=== PATIENT | female | born 2005 | race Caucasian/White ===

== ENCOUNTER 2023-01-28 16:02 | Emergency (ER) | payer BC, SELFPAY ==
[2023-01-28 16:03] VITALS: BP 106/65; PULSE 60; RESP 16; TEMP 36.7; O2SAT 100
[2023-01-28 16:44] VITALS: BP 108/58; PULSE 75; RESP 18; TEMP 37.1; O2SAT 100
[2023-01-28 18:17] VITALS: BP 114/79; PULSE 67; RESP 18; O2SAT 100
--- NOTE | 2023-01-28 18:25 | ED.GENADULT ---
HPI - General Adult General Chief complaint: Upper Respiratory Infection Stated complaint: swollen R tonsil Time Seen by Provider: 01/28/23 17:07 Source: patient Mode of arrival: ambulatory Limitations: no limitations History of Present Illness HPI narrative: This is a 17-year-old female who presents to the ED with chief complaint of sore throat for the past several days. Reports she was seen in urgent care yesterday and started on antibiotics this morning. She is taking amoxicillin. Reports that her strep swabs were negative but she was sent by urgent care today to rule out PHYSIOLOGICAL CHEMIST. Patient states that she has had intermittent fevers up to 101 ?F but these improve quickly with Tylenol and ibuprofen. Denies dysphagia, muffled voice, trismus, drooling. Denies any further complaint. Related Data Allergies Allergy/AdvReac Type Severity Reaction Status Date / Time naproxen AdvReac Drowsy Verified 01/28/23 16:50 Review of Systems Review of Systems: All systems as dictated in HPI Exam Narrative: GENERAL: Well-appearing, well-nourished, and in no acute distress. HEAD: Normocephalic, atraumatic. EYES: PERRLA and EOMI. ENT: Mild right-sided tonsillar hypertrophy. 1 exudate visualized on the right tonsil. Uvula midline. No trismus or drooling. Tolerating secretions. Floor the mouth intact. No neck swelling. Nares clear, no rhinorrhea or epistaxis. Mucous membranes moist. NECK: Supple. No adenopathy or masses. CHEST: No respiratory distress. Clear to auscultation. No wheezes rales or rhonchi HEART: Regular rate and rhythm. No murmur heard. Normal peripheral pulses. ABDOMEN: Soft, nontender, nondistended, normal active bowel sounds. MSK: Normal range of motion. No edema. SKIN: Warm, dry, no rash. NEURO: Alert and oriented x3. No focal deficits. PSYCH: Normal mood and affect. Course Vital Signs Vital signs: Vital Signs Temperature 98.1 F 01/28/23 16:03 Pulse Rate 60 01/28/23 16:03 Respiratory Rate 16 01/28/23 16:03 Blood Pressure 106/65 01/28/23 16:03 Pulse Oximetry 100 01/28/23 16:03 Oxygen Delivery Room Air 01/28/23 16:03 Temperature 98.8 F 01/28/23 16:44 Pulse Rate 67 01/28/23 18:59 Respiratory Rate 18 01/28/23 18:59 Blood Pressure 95/65 L 01/28/23 18:59 Pulse Oximetry 100 01/28/23 18:59 Oxygen Delivery Room Air 01/28/23 16:03 Medical Decision Making MDM Narrative Medical decision making narrative: This is a 17-year-old female who presents to the ED with chief complaint of sore throat for the past couple of days. She was started on antibiotics with urgent care yesterday. Vitals are normal. Exam reveals mild right-sided tonsillar hypertrophy and mild exudate. No uvular deviation. Very low concern for peritonsillar abscess. Symptoms consistent with tonsillitis. I offered further work-up with the patient but we discussed that I have a low concern for PHYSIOLOGICAL CHEMIST or deep space infection based on her exam. She declines further work-up and would like to go home on antibiotics. I also offered steroid to help with the sore throat and Medrol Dosepak was prescribed. Switching her amoxicillin to Augmentin for more coverage. Pt will be discharged in stable condition. Return precautions given and supportive measures discussed. Pt is understanding and agreeable with plan for discharge and follow-up with PCP. Vital Signs Vital Signs: Vital Signs Temperature 98.1 F 01/28/23 16:03 Pulse Rate 60 01/28/23 16:03 Respiratory Rate 16 01/28/23 16:03 Blood Pressure 106/65 01/28/23 16:03 Pulse Oximetry 100 01/28/23 16:03 Oxygen Delivery Room Air 01/28/23 16:03 Temperature 98.8 F 01/28/23 16:44 Pulse Rate 67 01/28/23 18:59 Respiratory Rate 18 01/28/23 18:59 Blood Pressure 95/65 L 01/28/23 18:59 Pulse Oximetry 100 01/28/23 18:59 Oxygen Delivery Room Air 01/28/23 16:03 Discharge Plan Discharge Clinical Impression: Sore throat
[2023-01-28 18:59] VITALS: BP 95/65; PULSE 67; RESP 18; O2SAT 100
== END 2023-01-28 19:01 | disposition home or self-care (01) ==
PROVIDERS: Emergency Provider Physician Assistant
DX: J02.9 Acute pharyngitis, unspecified (principal)
CPT/HCPCS: 99283

== ENCOUNTER 2024-09-04 02:35 | Day surgery (SDC) | payer BC, SELFPAY ==
[2024-08-29 12:08] VITALS: BMI 18.9
--- NOTE | 2024-08-29 12:16 | PC.NURSE ---
Report to the Outpatient Waiting Room, entrance under the green pavilion located off [facility], at time _0600_ on date _[id number]_. Planned Procedure Time: _0730_.? Time changes happen often and if your time is changed the preop area will call you the afternoon before. - You and your visitor will be asked to self-screen and do not enter if you have any COVID symptoms. Please call surgeon if you need to reschedule. - A mask is optional within the hospital at this time. Patients may have clear liquids (water, carbonated beverages, clear teas, apple juice) until 3 hours prior to surgery with a maximum of 20 ounces. - No food from midnight until time of surgery and no smoking, or chewing tobacco (or any form of nicotine). No chewing gum, candy or mints. Take only the following medications with a SIP of water on the morning of surgery: ___None____ DO NOT STOP ANY OF YOUR OTHER PRESCRIPTION MEDICATIONS PRIOR TO SURGERY EXCEPT THE FOLLOWING Hold all vitamins and supplements for 3 days per anesthesiologist. Medications to discontinue per physician Date to take last dose Please no make-up, nail tongan, hairspray, perfume, deodorant, or body powder the day of surgery.? No jewelry (including any body piercings) or valuables the day of surgery, leave them at home.? Please take a shower or bath the night before, or the morning of, surgery with an antibacterial soap.? Wear comfortable, loose fitting clothing.? - Jewelry must be removed prior to entering the operating room.? Rings and piercings that are not removed may be cut off. - The hospital will not accept responsibility for valuables.? - Please leave all valuables, including medications, at home the day of surgery. If you are going home after surgery, a licensed driver engineer must drive you home.? - NO public transportation without another adult if you receive anesthesia. - We recommend that an adult stay with you for 24 hours following discharge. - We also recommend that you do not drive, make important decision, drink alcoholic beverages, or take any drugs that were not prescribed by your health care provider for at least 24 hours after your discharge time. Follow any additional instructions given to you from your surgeon. Telephone instructions given to __Georgia___and asked if any additional questions and then verbalized understanding. Patient advised to call surgeon office or pre surgery nurse liaison [phone] if any additional questions.
[2024-09-04] VITALS (9 sets, daily range): BP systolic 103–127; BP diastolic 59–94; PULSE 66–99; RESP 14–23; TEMP 36.4–36.9; O2SAT 98–100
--- OUTSIDE RECORDS SUMMARY | 2024-09-04 02:39 | XMS_ITS | Clinical Summary ---
Author Organization [facility] [address] Address [address] [place] [id number] Care Team Providers Care Gas Singer Name Role Phone Mary Alonso MD Primary Care Provider [phone] Allergies Active Allergy Reactions Criticality Noted Date Comments Naproxen Other (See comments) Low 01/27/2023 drowsy Medications etonogestreL-et hinyl estradioL (EluRyng) 0.12-0.015 mg/24 hr vaginal ring INSERT 1 VAGINAL RING EVERY MONTH BY VAGINAL ROUTE 02/07/2024 Active Active Problems No known active problems Social History Tobacco Use Types Packs/Day Years Used Date Smoking Tobacco: Never Assessed Comments Unknown Sex and Gender Information Value Date Recorded Sex Assigned at Not on file Legal Sex Female 11:05 AM CDT Gender Identity Not on file Sexual Orientation Not on file Obstetrics History Last Filed Vital Signs Vital Sign Reading Time Taken Comments Blood Pressure 108/68 05/31/2024 4:38 PM HIM ASSISTANT Pulse 74 05/31/2024 4:38 PM HIM ASSISTANT Temperature 36.9 C (98.5 F) 05/31/2024 4:38 PM HIM ASSISTANT Respiratory Rate 20 05/31/2024 4:38 PM HIM ASSISTANT Oxygen Saturation 99% 05/31/2024 4:38 PM HIM ASSISTANT Inhaled Oxygen Concentration - - Weight 49.9 kg (110 lb) 05/31/2024 4:38 PM HIM ASSISTANT Height 162.6 cm (5' 4) 04/30/2024 6:59 PM HIM ASSISTANT Body Mass Index 18.88 04/30/2024 6:59 PM HIM ASSISTANT Plan of Treatment Health Maintenance Due Date Last Done Comments Cervical Cancer Screening 2003 Depression Screening 2003 Hepatitis C Screening 2003 Varicella Vaccines (2 of 2 - 2-dose childhood series) 2007 11/12/2004 DTaP/Tdap/Td Vaccine (6 - Tdap) 2014 11/01/2008, 05/21/2004, 2003, Additional history exists HPV Vaccines (1 - 3-dose series) 2018 Meningococcal B Vaccine (1 of 2 - Standard) 2019 Regular Well Visit/Exam 18-64 2021 Covid-19 Vaccine (2 - season) 2023 09/08/2022 Hepatitis B Screening Completed 2003 , 2003, 2003 Meningococcal Vaccine Completed 10/09/2020 Influenza Vaccine Completed 01/11/2024, 12/30/2023 Pneumococcal vaccine <65 Aged Out No longer eligible based on patient's age to complete this topic Insurance [employer] Group Member Subscriber Plan / Payer (Ef fective 2019-Present) Name:Georgia Bowers Relation to Subscriber:Child Name:ADITINUNUSTEWART Date of :1970 (Home) Address: [address] [place] [id number] Payer ID:[id number] (NAIC) Type:[employer] Address: [facility] [id number] [place] [id number] Care Teams Gas Singer Relationship Specialty Start Date End Date Mary Alonso MD [address] [place] [address] PCP - General Family Practice 01/27/23
--- OUTSIDE RECORDS SUMMARY | 2024-09-04 02:39 | XMS_ITS | Referral Summary ---
Author Organization [facility] [address] Address [address] [place] [id number] Care Team Providers Care Livestock Ranch Hand Name Role Phone Mary Alonso MD Primary Care Provider [phone] Allergies Active Allergy Reactions Criticality Noted Date [...] on file Sexual Orientation Not on file Last Filed Vital Signs Vital Sign Reading Time Taken Comments Blood Pressure 108/68 05/31/2024 4:38 PM DELIVERY DRIVER ASSISTANT Pulse 74 05/31/2024 4:38 PM DELIVERY DRIVER ASSISTANT Temperature 36.9 C (98.5 F) 05/31/2024 4:38 PM DELIVERY DRIVER ASSISTANT Respiratory Rate 20 05/31/2024 4:38 PM DELIVERY DRIVER ASSISTANT Oxygen Saturation 99% 05/31/2024 4:38 PM DELIVERY DRIVER ASSISTANT Inhaled Oxygen Concentration - - Weight 49.9 kg (110 lb) 05/31/2024 4:38 PM DELIVERY DRIVER ASSISTANT Height 162.6 cm (5' 4) 04/30/2024 6:59 PM DELIVERY DRIVER ASSISTANT Body Mass Index 18.88 04/30/2024 6:59 PM DELIVERY DRIVER ASSISTANT Plan of Treatment Not on file Insurance [employer] Member Subscriber Plan / Payer (Ef fective 2019-Present) Name:Georgia Pennington Relation to Subscriber:Child Name:STEWART PENNINGTON Date of :1972 (Home) Address: [address] [place] [id number] Payer ID:[id number] (NAIC) Type:[employer] Address: [facility] [id number] [place] [id number] Care Teams Livestock Ranch Hand Relationship Specialty Start Date End Date Mary Alonso MD [address] [place] [address] PCP - General Family Practice 01/27/23
--- OUTSIDE RECORDS SUMMARY | 2024-09-04 02:39 | XMS_ITS | Clinical Summary ---
Author Organization [facility] Address [address] [place] [address] Phone Care Team Providers Care Child Care Lead Teacher Name Role Phone Unavailable Primary Care Provider Unavailabl e Allergies No known active allergies Medications No known medications Active Problems Problem Noted Date Diagnosed Date Painful orthopaedic hardware 01/29/2015 Encounter for removal of internal fixation devic e 01/29/2015 Social History Tobacco Use Types Packs/Day Years Used Date Smoking Tobacco: Never Smokeless Tobacco: Never Tobacco Cessation:Counseling Given: No Alcohol Use Standard Drinks/Week Comments No 0 (1 standard drink = 0.6 oz pur e alcohol) Comments No Sex and Gender Information Value Date Recorded Sex Assigned at Not on file Legal Sex Female 4:08 AM CDT Gender Identity Not on file Sexual Orientation Not on file Last Filed Vital Signs Vital Sign Reading Time Taken Comments Blood Pressure 104/55 12/05/2017 8:28 AM CDT Pulse 57 12/05/2017 8:28 AM CDT Temperature 37 C (98.6 F) 12/05/2017 8:28 AM CDT Respiratory Rate 17 12/05/2017 8:28 AM CDT Oxygen Saturation 99% 12/05/2017 8:28 AM CDT Inhaled Oxygen Concentration - - Weight 52.1 kg (114 lb 14.4 oz) 12/05/2017 8:28 AM CDT Height 160 cm (5' 3) 12/05/2017 8:28 AM CDT Body Mass Index 20.35 12/05/2017 8:28 AM CDT Plan of Treatment Health Maintenance Due Date Last Done Comments Hepatitis C Virus (HCV) Screening 2003 TdaP Immunization 2003 Human Papillomavirus (HPV) Immunization (1 - 3-dose series) 2018 Meningococcal B Immunization (1 of 2 - Standard) 2019 Hepatitis B Immunization (1 of 3 - 19+ 3-dose series) 2022 Influenza Immunization (#1) 2023 SARS-COV-2 Immunization ( - 2023- season) 2023 Respiratory Syncytial Virus (RSV) Immunization (Adult) (1 - 1-dose 75+ series) 2078 Meningococcal Immunization (ACWY) Aged Out No longer eligible based on patient's age to complete this topic Pneumococcal Immunization Combined Aged Out No longer eligible based on patient's age to complete this topic Rotavirus Immunization Aged Out No lo nger eligible based on patient's age to complete this topic Insurance [facility] Advance Directives * Full Code (Latest Code Status on File) Date Activated Date Inactivated Comments 02/08/2015 8:11 AM 02/08/2015 2:43 PM Full Code: FULL ARREST: Attempt Resuscitation/CPR and use intubation and mechanical ventilation as indicated. PRE-ARREST: Use all measures to stabilize patient.
--- OUTSIDE RECORDS SUMMARY | 2024-09-04 02:39 | XMS_ITS | Data Portability ---
Author Organization [facility], [address] [place] [address] Neurology ([place]) Address [address] [place] [address] Care Team Providers Care Debt Collection Specialist Name Role Phone MARY MARCIAL Primary Care Provider [phone] Assessment Encounter Date Assessment Date Assessment LastModified by Organization Details LastModified Time 09/28/2023 09/28/2023 The patient was encouraged to continue with her mqzj-adz-abhcpuf Mucinex. She was encouraged to use nasal saline as well. I did give her some Flonase as well as antibiotics. If she is not improving or she is worsening, she is to call back in the next several weeks. If anything changes in the meantime, she is to let me know. She was advised to keep an eye on the area on her right lower back. If it changes all, she will call back. The patient voiced understanding of this plan and was in agreement with it. Not available 09/28/2023 13:15:34 06/09/2024 06/09/2024 The patient was advised to change her toothbrush after 3 days. She will continue with her ring as she may insert a new one. If she starts having any other issues or concerns, she is to call me back. She was encouraged to use protection if she is going to be sexually active. She voiced understanding of this plan and was in agreement with it. If she still having a sore throat next week, she is to call back. Not available 06/09/2024 12:08:22 07/14/2024 07/14/2024 She is up-to-date on her tetanus and she was advised to continue keeping the area clean and covered. I advised her that the bruising might worsen. She should continue with the antibiotics and call me if she develops any worsening symptoms. The patient and mother voiced understanding of this plan and and was in agreement with it. If anything changes, they will call back. Not available 07/14/2024 15:29:30 Plan of Treatment Reminders Order Date Submit Date Provider Last Modified By Organization Details Last Modified Time Details Appointments None recorded. Lab streptococc us group A DNA 2024 Formerly [facility], [address] [place] [address], [id number], 14:01:50 Referral None recorded. Procedures None recorded. Surgeries None recorded. Imaging None recorded. Medication Orders amoxicillin 500 mg capsule 2024 025 [facility], [address] [place] [address], [place], [address], 14:21:54 amoxicillin 500 mg capsule 2023 024 [email or web address] [id number] [facility], [address] [place] [address], [place], [address], 5 14:21:53 fluticasone propionate 50 mcg/actuati on nasal spray,suspe nsion 2023 024 3 [facility], [address] [place] [address], [place], [address], 11:12:36 Patient TargetsNo targets recorded. Patient InstructionsNo instructions recorded. Reason for Referral None Reported. Results Created Date Observation Date Name Description Value Unit Range Abnormal Flag Note LastModifiedBy Organization Detail LastModifiedTime 06/10/19 25 06/09/2024 strep tococ cus group A DNA group A strep DNA probe POSITI VE negati ve abnormal Speci men posit janey for Strep tococ cus pyoge saqib (Grou p A Strep ) by DNA ampli ficat ion. Not Available [facility] [address] [place] [address], [id number], 06/09/2024 14:01:50 Result Notes None recorded. Problems Name Problem SNOMED Code Status Onset Date Resolution Date Notes Provider Name and Address Organization Details Recorded Time Menometror rhagia 258147703 Active 2023 [facility] 11:15:10 Sore throat 319089882 Active 2024 Mary Marcial MD [address] [place] [phone] , [facility] 5 11:40:48 Streptococ chandan sore throat 20278216 Active 2024 Mary Marcial MD [address] [place] [phone] , [facility] 5 12:04:37 Acute serous otitis media of bilateral ears 9094287866527 107 Active 2023 Mary Marcial MD [address] [place] [phone] , [facility] 4 13:03:11 Problem Notes None recorded. Medical Equipment None Reported. Allergies No known drug allergies Medications Name Sig Start Date Stop Date Status Note LastModified by Organization Details LastModified Time amoxicillin 500 mg capsule Take 1 capsule every 8 hours by oral route. 07/14 completed Not Available Not Available Not Available loperamide 2 mg capsule TAKE ONE TABELT BY MOUTH THREE TIMES DAILY NEEDED. 09/27 completed Not Available Not Available Not Available azithromyci n 250 mg tablet TAKE 2 TABLETS BY MOUTH TODAY, THEN TAKE 1 TABLET DAILY FOR 4 DAYS DIRECTED 07/14 completed Not Available Not Available Not Available benzonatate 200 mg capsule TAKE 1 CAPSULE (200 MG TOTAL) BY MOUTH 3 (THREE) TIMES A DAY NEEDED FOR COUGH FOR UP TO 7 DAYS. 06/09 completed Not Available Not Available Not Available amoxicillin 250 mg-potasstracyu m clavulanate 125 mg tablet Take 1 tablet every 8 hours by oral route. active Not Available Not Available No t Available Zyrtec 10 mg tablet Take 1 tablet every day by oral route. active Not Available Not Available No t Available amoxicillin 875 mg tablet TAKE 1 TABLET BY MOUTH TWICE A DAY FOR 10 DAYS 09/27 completed Not Available Not Available Not Available hydroxyzine HCl 25 mg tablet TAKE 1 TABLET BY MOUTH THREE TIMES A DAY NEEDED active Not Available Not Available No t Available methylpredn isolone 4 mg tablets in a dose pack TAKE 6 TABLETS ON DAY 1 DIRECTED ON PACKAGE AND DECREASE BY 1 TAB EACH DAY FOR A TOTAL OF 6 DAYS 09/27 completed Not Available Not Available Not Available fluticasone propionate 50 mcg/actuati on nasal spray,suspe nsion Gilchrist 1 spray every day by intranasa l route. 06/09 completed Not Available Not Available Not Available amoxicillin 875 mg-potassiu m clavulanate 125 mg tablet TAKE 1 TABLET BY MOUTH EVERY 12 HOURS 09/27 completed Not Available Not Available Not Available escitalopra m 20 mg tablet TAKE 1 TABLET DAILY- 2024 active Not Available Not Available Not Avai lable Vienva 0.1 mg-20 mcg tablet TAKE 1 TABLET BY MOUTH ONCE DAILY. NEEDS APPOINTME NT BEFORE NEXT REFILL 06/09 completed Not Available Not Available Not Available EluRyng 0.12 mg-0.015 mg/24 hr vaginal ring INSERT 1 VAGINAL RING EVERY MONTH BY VAGINAL ROUTE 2024 active Not Available Not Available Not Avai lable Vitals Date Recorded Body height Body mass index (BMI) Body weight Body temperature Heart rate Oxygen saturation Oxygen saturation in Arterial blood by Pulse oximetry Systolic blood pressure Diastolic blood pressure Provider Name and Address Organization Details Last Updated DateTime 5 161.29 cm 17.6 kg/m2 40399.8 3 g 98.8 [degF] 80 /min 98 % 98 % 118 mm[Hg] 72 mm[Hg] [facility] 5 11:11:52 Date Recorded Body height Body mass index (BMI) Body weight Body temperature Heart rate Oxygen saturation Oxygen saturation in Arterial blood by Pulse oximetry Systolic blood pressure Diastolic blood pressure Provider Name and Address Organization Details Last Updated DateTime 5 161.29 cm 19.4 kg/m2 28011.7 5 g 99.3 [degF] 90 /min 100 % 100 % 114 mm[Hg] 72 mm[Hg] Delfino Zambrano [facility] 5 14:21:38 Date Recorded Body height Body mass index (BMI) Percentile per age and sex Body mass index (BMI) Body weight Body temperature Heart rate Oxygen saturation Oxygen saturation in Arterial blood by Pulse oximetry Systolic blood pressure Diastolic blood pressure Provider Name and Address Organization Details Last Updated DateTime 4 161.29 cm 2 % 17.2 kg/m2 68720.5 7 g 98.9 [degF] 78 /min 98 % 98 % 104 mm[Hg] 64 mm[Hg] Keira Wright [facility] 4 12:49:18 Social History Question Answer Notes LastModified by Organizat ion Details LastModified Time Tobacco Smoking Status Current Every Day Smoker Delfino Zambrano [facility] 06/09/2024 11:14:51 How Many Packs Per Day (PPD)? 0.25 [email or web address] Information not available 06/09/2024 How Long Have You Smoked? 1 Year [email or web address] Information not available 06/09/2024 Sex: Unknown Functional Status None recorded. Mental Status None recorded. Family History Nothing Reported. Medical History No medical history recorded. Gynecological HistoryNo gynecological history recorded. Obstetrics History GPAL:G 0 P 0 0 0 0 Immunizations Vaccine Type Date Status Note Provider Nam e and Address Organization Details Recorded Time Influenza, recombinant, trivalent, PF 4 completed Delfino Zambrano [facility] 06/09/2024 11:11:58 MMR 9 completed Keira [facility] 09/28/2023 12:49:[address] [facility] 09/28/2023 12:49:37 COVID-19, mRNA, LNP-S, bivalent, PF, 30 mcg/0.3 mL dose 3 completed [facility] 09/28/2023 12:49:[address] [facility] 09/28/2023 12:49:37 Hep B, unspecified formulation 4 completed [facility] 12:49:37 Hep B, unspecified formulation 4 completed [facility] 09/28/2023 12:49:37 Hep B, unspecified formulation 3 completed [facility] 09/28/2023 12:49:37 polio, unspecified formulation 4 completed [facility] 09/28/2023 12:49:37 polio, unspecified formulation 5 completed [facility] 09/28/2023 12:49:37 polio, unspecified formulation 4 completed [facility] 09/28/2023 12:49:37 polio, unspecified formulation 9 completed Keira Wright [facility] 09/28/2023 12:49:37 meningococcal MCV4P 1 completed Keira Wrigth [facility] 09/28/2023 12:49:37 DTaP, unspecified formulation 4 completed Keira Wright [facility] 09/28/2023 12:49:37 DTaP, unspecified formulation 5 completed [facility] 09/28/2023 12:49:37 DTaP, unspecified formulation 4 completed [facility] 09/28/2023 12:49:37 DTaP, unspecified formulation 4 completed [facility] 09/28/2023 12:49:37 DTaP, unspecified formulation 9 completed [facility] 09/28/2023 12:49:37 Past Encounters Encounter ID Performer Location Encounter Start Date Encounter Closed Date Diagnosis/Indication Diagnosis SNOMED-CT Code Diagnosis ICD10 Code Diagnosis Note [id number] Mary Marcial MD Located Within [facility] ([place]) [address] [place], [place] [address] [address] 09/28/2023 12:24:41 09/28/2023 15:40:05 Acute serous otitis media of bilateral ears 2459640660 495258 H65.03 [id number] Mary Marcial MD Located Within [facility] ([place]) [address] [place] [address] [facility] [address] 06/09/2024 10:58:10 06/09/2024 12:21:36 Sore throat 463038581 J02.9 Streptococ chandan sore throat 16305291 J02.0 [id number] Mary Mracial MD Located Within [facility] ([place]) [address] [place] [address] [place] [address] 07/14/2024 14:12:57 07/14/2024 15:00:22 Dog bite - wound 167218064 W54.0XXD Health Concerns Section Related Observation LastModified by Organization Detai ls LastModified Time None Recorded Concern Status LastModified by Organization Details LastModified Time None Recorded Advance Directives Directive None Recorded Payers Insurance Date Sequence Insurance Name Policy Number Policy Hernández Covered Member ID Hernández Member ID Guarantor Name 07/13/2024 1 [place] [id number] Kristine Bowers [id number] [place] Starr Bowers Notes Date Note Type Note Provider Name and Address Organization Details Recorded Time 09/28/2023 text/html The patient presents today with complaints of having some congestion for over a week and a half. She is started having symptoms before she went to [place] and now she is feeling worse. She had a little sore throat that got better. She still having a cough and is not choking on postnasal drainage. She denies any other known sick contacts. She denies any fever or rashes. Her appetite has been okay. She has been a little nauseated, but thinks is due to the postnasal drainage. She has not any vomiting or diarrhea. Her appetite was a little decreased over the weekend, but she was nervous because her cat got out but the cat is now come back. Mary Marcial MD [address] [place] [address], [phone], [facility] 09/28/2023 13:15:51 06/09/2024 text/html The patient presents today with mom. She has had a sore throat off and on for the past several weeks. She had some white patches on the back of it recently. She did go to urgent care and they told her she was negative for strep but she has been worse this week. She denies any fever but has had a headache off and on but does not think is related to that. She is not really had any congestion or rashes. She is voiding normally. She denies any pain in her bowel habits. She is also wondering about her control ring. She thinks it fell out recently. Her last menstrual cycle was on the third and she was feels to start this week but she did not put another one in because she was concerned that it may be still in the vaginal canal. She denies being sexually active with a new partners. She think she may have been drinking and was using tampons while she was on vacation may have accidentally pulled out the ring on her tampon. Otherwise, she feels that the ring is doing well. She did see gynecology for a Pap smear in January. Mary Marcial MD [address] [place] [address], [phone], [facility] 06/09/2024 12:09:01 07/14/2024 text/html The patient presents today for follow-up from her emergency room visit. She was bitten by a neighbors dog over the weekend. She went to the emergency room at that time. The wound is on the left forearm. They did find out that the dogs were vaccinated. Apparently was an unprovoked attack. The dog has been harassing other people as well. 1 dog was found later and the other 1 was injured. The county does have the other dog. She is still on the antibiotics. She is still having a lot of pain though. There is something sticking out of the left forearm, that she thought was a string initially but is still attached is very painful. Mary Marcial MD [address] [place] [address], [phone], [facility] 07/14/2024 15:30:03 OBGyn Episode No OBEpisode recorded.
--- OUTSIDE RECORDS SUMMARY | 2024-09-04 02:39 | XMS_ITS | Clinical Summary ---
Author Organization [facility] Address [address] [place] [address] Care Team Providers Care Refuse Laborer Name Role Phone Mary Alonso MD Primary Care Provider [phone] Source Comments [facility],non-owned Affiliates and Associated Physician Practices is amultiple site organization consisting of ambulatory clinics and hospital sitesin [place], [place], [place] and [place]. This disclosure is being madepursuant to the Care Everywhere program and may not contain all information available regarding this patient. Last updated 17.[facility] Allergies No known active allergies Medications * Be aware that medications may not be up to date on this document. Alwaysverify current medications with the patient. escitalopram (Lexapro) 20 MG tablet Take 1 (one) tablet by mouth once daily 01/15/2024 Active EluRyng 0.12-0.015 MG/24HR vaginal ring INSERT 1 VAGINAL RING EVERY MONTH BY VAGINAL ROUTE 02/07/2024 Active hydrOXYzine HCl (Atarax) 25 MG tablet Take 1 (one) tablet by mouth 3 times daily as needed 08/07/2023 Active Social History Tobacco Use Types Packs/Day Years Used Date Smoking Tobacco: Never Smokeless Tobacco: Never Tobacco Cessation:Counseling Given: Not Answered Alcohol Use Standard Drinks/Week Comments Not Currently 0 (1 standard drink = 0.6 oz pur e alcohol) Comments No Sex and Gender Information Value Date Recorded Sex Assigned at Not on file Legal Sex Female 9:05 AM CDT Gender Identity Not on file Sexual Orientation Not on file Last Filed Vital Signs Vital Sign Reading Time Taken Comments Blood Pressure 120/70 03/02/2024 1:56 PM NATURAL RESOURCE SPECIALIST Pulse - - Temperature - - Respiratory Rate - - Oxygen Saturation - - Inhaled Oxygen Concentration - - Weight 53.7 kg (118 lb 6.4 oz) 03/02/2024 1:56 P M NATURAL RESOURCE SPECIALIST Height 162.6 cm (5' 4) 03/02/2024 1:56 PM NATURAL RESOURCE SPECIALIST Body Mass Index 20.32 03/02/2024 1:56 PM NATURAL RESOURCE SPECIALIST Plan of Treatment Health Maintenance Due Date Last Done Comments HIV SCREENING 2018 HPV VACCINE (1 - 3-dose series) 2018 MENINGOCOCCAL (Group B) VACC INE SHARED DECISION-MAKING (1 of 2 - Standard) 2019 HEPATITIS C SCREENING 02/07/2021 DTAP/TDAP/TD VACCINES (1 - Tdap) 2022 HEPATITIS B VACCINE (1 of 3 - 19+ 3-dose series) 2022 COVID-19 VACCINE (2 - 2023-2 5 season) 2023 09/08/2022 DEPRESSION SCREENING 03/29/2024 CHLAMYDIA/GONORRHEA SCREENING 03/02/2025 03/02/2024 PAP SMEAR 03/02/2027 03/02/2024 ZOSTER VACCINE (1 of 2) 2053 INFLUENZA VACCINE Completed 12/30/2023 HIB VACCINE Aged Out No longer eligi ble based on patient's age to complete this topic MENINGOCOCCAL GROUPS A/C/Y/W VACCINE Aged Out No longer eligible b ased on patient's age to complete this topic PNEUMOCOCCAL VACCINE Aged Out No long er eligible based on patient's age to complete this topic Procedures Procedure Name Priority Date/Time Associated Diagnosis Comments PAP IMAGE-GUIDED RFLX HPV+CT/NG Routine 03/02/2024 3:22 PM NATURAL RESOURCE SPECIALIST Encounter for gynecological examination without abnormal finding C. TRACHOMATIS + N. GONORRHOEAE REFUGIO Routine 03/02/2024 3:22 PM NATURAL RESOURCE SPECIALIST Encounter for gynecological examination without abnormal finding from Last 3 Months or Most Recently Relevant to Health Maintenance Results * C. TRACHOMATIS + N. GONORRHOEAE REFUGIO (03/02/2024 3:22 PM NATURAL RESOURCE SPECIALIST) Chlamydia Trachomatis REFUGIO Not detected Not detected 03/08/2024 9:53 AM NATURAL RESOURCE SPECIALIST [facility] Neisseria Gonorrhoeae REFUGIO Not detected Not detected 03/08/2024 9:53 AM NATURAL RESOURCE SPECIALIST [facility] Pathology/Cytolo gy MISCELLANEOUS SAMPLES / Unknown 03/02/2024 3:22 PM NATURAL RESOURCE SPECIALIST 03/03/2024 12:03 PM NATURAL RESOURCE SPECIALIST Narrative [facility] - 03/08/2024 9:53 AM NATURAL RESOURCE SPECIALIST This analysis was performed using Gen-Probe Aptima Combo 2. This methodology is U.S. FDA approved for Chlamydia trachomatis and Neisseria gonorrhoeae testing for urine and urogenital swabs from men and women, and cervical cells submitted in ThinPrep vials. Performance characteristics for rectal and pharyngeal swabs were determined by the [facility] Laboratory at [facility]. Testing by Gen-Probe Aptima Combo 2 on these sample types has not been cleared or approved by the U.S. FDA. The FDA has determined that such clearance approval is not necessary. This test is used for clinical purposes and should not be regarded as investigational or for research. This laboratory is certified under the Clinical Laboratory Improvements Amendments of 1988 (CLIA 1988), as qualified to perform high complexity laboratory testing. Jo Ann [facility] - MICROBIOLOGY ORDERA BLES Final Result [facility] [address] [place] [address], [facility] [phone] * PAP IMAGE-GUIDED RFLX HPV+CT/NG (03/02/2024 3:22 PM NATURAL RESOURCE SPECIALIST) Case Report Gynecologic Cytology Report Case: [id number] Authorizing Provider: Jo Ann Colon APRN-CNP Collected: 03/02/2024 03:22 PM Ordering Location: [facility] - Received: 03/03/2024 12:03 PM RECREATION PROGRAMMER First Screen: Aniket Rausch CT(ASCP) Pathologist: Albin Worthington MD Specimen: THINPREP - IMAGE GUIDED, Cervix/Endocervix 03/06/2024 11:56 AM NATURAL RESOURCE SPECIALIST [facility] LMP 01/30/24 03/06/2024 11:56 AM NATURAL RESOURCE SPECIALIST [facility] Menstrual Status Oral Contraceptives 03/06/2024 11:56 AM [facility] Specimen Adequacy Satisfactory for evaluation, endocervical/trans formation zone component present. 03/06/2024 11:56 AM [facility] Categorization Epithelial cell abnormality. 03/06/2024 11:56 AM [facility] Interpretation EYELET ROW MARKER Low grade squamous intraepithelial lesion (LSIL). 03/06/2024 11:56 AM [facility] at 1156 NATURAL RESOURCE SPECIALIST Pap Footnote The Pap Smear is a screening test. False positive and false negative results occur. Negative results do not preclude abnormalities, thus clinical correlation is required. This specimen was evaluated by the [facility] gamesPrep Imaging System along with an additional manual rescreening by a electrician substation and/or pathologist. 03/06/2024 11:56 AM [facility] Embedded Images 11:56 AM [facility] Pathology/Cytolo gy MISCELLANEOUS SAMPLES / Unknown 03/02/2024 3:22 PM NATURAL RESOURCE SPECIALIST 03/03/2024 12:03 PM NATURAL RESOURCE SPECIALIST Jo Ann Colon RECORDS SPECIALIST-AIRCRAFT ELECTRICAL SYSTEMS SPECIALIST LAB - PATHOLOGY/CYTOLOGY ORDERABLES Final Result Performing Organization Address City/State/[facility] Co de Phone Number [facility] [address] [phone] from Last 3 Months or Most Recently Relevant to Health Maintenance Insurance R[employer] Care Teams Refuse Laborer Relationship Specialty Start Date End Date Mary Alonso MD [address] [place] [phone] PCP - General Family Medicine 01/18/24
[2024-09-04] MEDS: ACETAMINOPHEN 500 MG TABLET 1000 MG PO (06:20)
[2024-09-04] MEDS: LACTATED RINGERS 1,000 ML 30 ML IV CONT ×2 (06:25→08:53)
--- NOTE | 2024-09-04 06:50 | WPDANESEPPF ---
Anes - Initial Pre Proc Eval Procedure: Operation Date: 09/04/24 07:30 Proposed Procedures p Tonsillectomy And Adenoidectomy - Gearldo Ballesteros MD Date/Time: 09/04/24 06:50 Surgeon: Geraldo Ballesteros MD Pre Op Diagnosis: acute recurrent tonsillitis Patient Data Age: 19 Gender: F Height: 1.63 m Weight: 51.6 kg Last Vital Signs Temp 36.9 C 09/04/24 06:16 Pulse 78 09/04/24 06:16 Resp 18 09/04/24 06:16 BP 118/71 09/04/24 06:16 Pulse Ox 100 09/04/24 06:16 O2 Del Method Room Air 09/04/24 06:16 Allergies Allergy/AdvReac Type Severity Reaction Status Date / Time naproxen AdvReac Drowsy Verified 09/04/24 06:43 Home Medications ?Medication ?Instructions ?Recorded ?Confirmed ?Type cetirizine 10 mg tablet (Zyrtec) 10 mg PO DAILY PRN allergy symptoms 07/26/24 09/04/24 History escitalopram oxalate 20 mg tablet 20 mg PO HS 07/26/24 09/04/24 History amoxicillin 875 mg-potassium 1 tablet PO BID #14 tabs 08/30/24 09/04/24 Rx clavulanate 125 mg tablet Patient hx anesthesia problems: none Family hx anesthesia problems: none Results Review: All pre-operative results and documents have been reviewed as part of the pre-operative evaluation. [facility] Social History Social History Smoking status: Never smoker Alcohol intake: current Drinks per week: 3 Living arrangements: with roommate(s) Spiritual care concerns: No Anes - Eval Final PreProcedure Day of Procedure 09/04/24 06:50 Patient weight: normal Heart: regular rate and rhythm Lungs: clear to auscultation Airway: Mallampati scale class 1 Neurological: alert and oriented Last oral intake: >/= 8 hours ASA classification: II Emergent: no Anesthetic plan: proceed Anesthesia type and monitoring: general ETT and standard monitoring Results Review: All pre-operative results and documents have been reviewed as part of the pre-operative evaluation. Informed Consent: The patient's anesthetic plan and its attendant risks and benefits were discussed with the patient/family/POA. Questions were solicited and answers provided to the satisfaction of the patient/family/POA.
[2024-09-04 06:58] LABS: BEDSIDEPREGUCG Negative (Negative)
--- NOTE | 2024-09-04 07:15 | PM.IMHP ---
H&P: HPI History of Present Illness Date/Time: 09/04/24 07:15 Chief Complaint: Recurrent tonsillitis/adenoiditis, see previous/last office visit note PMFSH Social History Social History Smoking status: Never smoker Alcohol intake: current Drinks per week: 3 Living arrangements: with roommate(s) Spiritual care concerns: No Meds Home Medications and Allergies Home Medications ?Medication ?Instructions ?Recorded ?Confirmed ?Type cetirizine 10 mg tablet (Zyrtec) 10 mg PO DAILY PRN allergy symptoms 07/26/24 09/04/24 History escitalopram oxalate 20 mg tablet 20 mg PO HS 07/26/24 09/04/24 History amoxicillin 875 mg-potassium 1 tablet PO BID #14 tabs 08/30/24 09/04/24 Rx clavulanate 125 mg tablet Allergies Allergy/AdvReac Type Severity Reaction Status Date / Time naproxen AdvReac Drowsy Verified 09/04/24 06:43 Vital Signs Vital Signs - 24 hr 09/04/24 06:16 Temperature 36.9 C Pulse Rate 78 Respiratory Rate 18 Blood Pressure 118/71 Pulse Oximetry 100 Oxygen Delivery Room Air Exam Narrative: cryptic appearing tonsils Assessment and Plan Assessment and plan (1) Recurrent tonsillitis: Code(s): J03.91 - Acute recurrent tonsillitis, unspecified Status: Acute Assessment and Plan: See previous office note, plan OR for tonsillectomy adenoidectomy (2) Adenoiditis: Code(s): J35.02 - Chronic adenoiditis Status: Acute
--- NOTE | 2024-09-04 07:16 | WPDHPUPDATE1 ---
History and Physical Update Update Date/Time: 09/04/24 07:16 History and Physical has been reviewed, including an updated exam of the patient. There are NO changes in the patient's condition. Risks, benefits, and alternatives have been discussed and questions answered. Patient agrees to proceed with procedure.
--- NOTE | 2024-09-04 07:48 | S_PTH ---
PATIENT: Georgia Bowers LOC: [facility] U#:[id number] AGE/SX: 19/F ROOM: RE09/04/[address]: Geraldo Ballesteros MD : 2005 BED: DIS: 09/04/2024 SPEC #: [id number] RECD: 09/04/24 10:20 STATUS: LOGAN DELVALLE #: [id number] RUDOLPH: 09/04/24 07:[address]: Geraldo Ballesteros DEPT: [facility] Surgical RECD BY: Khadra Contreras Tissues: A - Tonsil NOS B - Tonsil NOS Procedures: Hematoxylin and Eosin Stain Gross and Microscopic Level 3
[2024-09-04] MEDS: OXYMETAZOLINE HCL 0.05% NAS 15 ML BTL (*BKC) 1 SPRAY NASAL (08:07)
[2024-09-04] MEDS: fentaNYL CITRATE INJ (*CRX) 100 MCG/2 ML VIAL 25 MCG IV PUSH ×6 (08:35→08:59)
--- NOTE | 2024-09-04 08:44 | P.OP_ITS ---
Procedure Note - Detailed Date of Procedure 09/04/24 Pre-op Diagnosis acute recurrent tonsillitis, adenoiditis Post-op Diagnosis Same Procedure Performed Adenoidectomy, tonsillectomy Surgeon Geraldo Ballesteros MD Anesthesia General Indications See above Findings Right tonsil greater than left, they were sent separately, abnormal appearing front of adenoid tissue in the midline easily removed no bleeding from the adenoids, about 5 cc bleeding from right superior vessel behind the tonsil. Easily controlled. Description of Procedure Patient identified consent verified in the preoperative holding area. Patient brought to the operating room. Time-out performed. General anesthesia was induced and endotracheal tube was secured the patient's airway. The patient prepped draped position procedure confirmed 2nd time-out performed. McIvor mouth gag inserted to reveal tonsils described above they were removed bilaterally in the extracapsular plane using Coblator at a setting of medium and medium essentially. Any bleeding was controlled with scope later. On the right superior vessel small artery was present this required the use of Bovie suction electrocautery setting of 15 to cauterize both ends. Which is easily done. In- between tonsils the McIvor mouth gag was lowered reopened to allow blood flow to return to the tongue. After the tonsils are out Anesthesia Valsalva and there was no further bleeding. Red rubber catheters were then inserted transnasally suspending the palate anteriorly. Abnormal appearing adenoid tissue in the midline this was removed with a Coblator setting of meeting medium. No bleeding. Red rubber catheters McIvor mouth gag removed care the patient given back to Anesthesiology I performed all dictated portions of procedure patient was taken to PACU total blood loss 5 cc. No immediate complications. Estimated Blood Loss 5 Drains No Packing No Pathology Yes Complications No immediate complications Condition Stable Disposition PACU [facility] Billing Surgery - Charge Forward: Surgery Billing
[2024-09-04] MEDS: oxyCODONE (*CRX) 5 MG/5 ML ORAL SOLN IR PO (09:34)
== END 2024-09-04 10:13 | disposition home or self-care (01) ==
PROVIDERS: Visit Provider Otolaryngology
PROC: (CPT 42821; principal; 2024-09-04 07:30)
DX: J35.03 Chronic tonsillitis and adenoiditis (principal); A42.89 Other forms of actinomycosis
CPT/HCPCS: 42821; 88304; A9270; J1100; J2003; J2250; J2405; J2704; J3010; J7050; J7120